=== PATIENT | male | born 1965 | race Caucasian/White ===

== ENCOUNTER 2018-12-08 09:36 | Emergency (ER) | payer OTHER, SELFPAY ==
[2018-12-08 09:40] VITALS: BP 154/101; PULSE 71; RESP 18; TEMP 36.9; O2SAT 100
--- NOTE | 2018-12-08 09:43 | DI.RAD.S_ITS ---
PROCEDURE: XR FINGER LT MIN 2V INDICATIONS: saw vs left index tip TECHNIQUE: AP hand, 2 views of the left 2nd finger(s) acquired. COMPARISON: None. FINDINGS: Bones: Moderately displaced comminuted distal tuft fracture is present. Small radiodensities within the adjacent soft tissues. Soft tissues: No suspicious soft tissue calcifications. Laceration of the distal aspect of the 2nd digit. IMPRESSION: 1. Distal tuft fracture involving the 2nd digit as described above. 2. Small radiodensities within the adjacent soft tissues, indicating fracture fragments versus foreign bodies. Dictated by: Willis Thompson M.D. on 12/08/2018 at 10:13 Approved by: Willis Thompson M.D. on 12/08/2018 at 10:17
[2018-12-08] MEDS: TET,DIPH,PERTUSS(ACELL),VAC/PF 0.5 ML SYRINGE IM (10:04)
--- NOTE | 2018-12-08 11:19 | ED_ITS ---
HPI - Skin/Abscess/Foreign Bdy General Chief complaint: Skin/Abscess/Foreign Body Stated complaint: cut tip of left hand pointer finger Time Seen by Provider: 12/08/18 10:18 Source: patient Mode of arrival: ambulatory Limitations: no limitations History of Present Illness HPI narrative: Patient comes emergency department complaining of partial left index finger tip amputation after catching his glove in a band saw about 3 hours ago. Patient denies being hurt in any other way. He states his finger tip is throbbing, and that he has sensation at the tip. Patient states he has full range of motion of the finger. No prior injury to the finger. Patient's last tetanus shot was within 10 years. No other complaints at this time. Related Data Home Medications Medication Instructions Recorded Confirmed sw-gd-[id number]-vit E-tnqpe-oem-coQ10 1 tab PO DAILY 12/08/18 12/08/18 [Daily Multivitamin] Previous Rx's Medication Instructions Recorded amoxicillin-pot clavulanate 1 tab PO BID #14 tab 12/08/18 [Augmentin] hydrocodone-acetaminophen 1 - 2 tab PO Q4H PRN #20 tab 12/08/18 Allergies Allergy/AdvReac Type Severity Reaction Status Date / Time No Known Drug Allergies Allergy Verified 12/08/18 09:42 Review of Systems Constitutional Denies chills, Denies fever(s), Denies lethargy and Denies weakness Eyes Denies change in vision, Denies eye discharge, Denies irritation and Denies loss of vision ENT Ears, Nose, Mouth, and Throat: Denies change in voice, Denies neck pain and Denies sore throat Cardiovascular Denies chest pain, Denies irregular heart rhythm, Denies lightheadedness, Denies palpitations, Denies dyspnea, Denies dyspnea on exertion and Denies orthopnea Respiratory Denies cough, Denies dyspnea, Denies dyspnea on exertion and Denies wheezing Gastrointestinal Gastrointestinal: Denies abdominal pain, Denies change in bowel habits, Denies diarrhea, Denies nausea and Denies vomiting Genitourinary Denies hematuria, Denies flank pain, Denies urinary incontinence and Denies urinary urgency Musculoskeletal Denies neck pain Integumentary/Breasts Denies pruritus, Denies erythema, Denies rash and Denies wounds Comments: finger tip avulsion and nail bed laceration Neurologic Denies confusion, Denies loss of vision and Denies weakness Psychiatric Denies anxiety, Denies confusion, Denies depression, Denies homicidal ideation and Denies suicidal ideation Endocrine Denies palpitations Hematologic/Lymphatic Denies easy bruising Allergic/Immunologic Denies wheezing [facility] Medical History Healthy adult (Acute) Surgical History No pertinent past surgical history (Acute) Social History Smoking Status: Never smoker Social History Smoking Status: Never smoker Exam Initial Vital Signs Initial Vital Signs: Vital Signs Temperature 98.4 F 12/08/18 09:40 Pulse Rate 71 12/08/18 09:40 Respiratory Rate 18 12/08/18 09:40 Blood Pressure 154/101 H 12/08/18 09:40 Pulse Oximetry 100 12/08/18 09:40 Const General: cooperative and well developed Nutritional Appearance: well nourished Orientation: alert, awake, oriented x3 and not confused HENMT Head: normocephalic and atraumatic Ears: external ears normal Nose: external nose normal and No nasal discharge Face and sinus: face symmetric and No dry mucous membranes Mouth: oral mucosae normal and moist mucous membranes Teeth and gingiva: dentition normal Eyes General: appearance normal, both eyes and all related structures Eyelids: eyelids normal Conjunctivae: conjunctivae normal Sclera: sclerae normal Pupils: PERRL EOM: EOM intact bilaterally Neck Neck: normal visual inspection, trachea midline, No lymphadenopathy, No midline deformity and No JVD Lymphatic: No lymphedema Resp Effort & Inspection: normal respiratory effort, able to speak in complete sentences, no respiratory distress and no use of accessory muscles Cardio Rate: regular rate Rhythm: regular rhythm Pulses: radial pulses present and normal peripheral pulses Skin General: no rashes or lesions noted, No jaundice and No petechiae Other: patient has a jagged laceration through his distal left finger, extending through the germinal matrix and obliquely and distally toward the palmar side. There is an approximately 1 cm portion of skin and tissue which is still attached on the palmar side of the patient's finger tip. Nail is completely avulse to from the germinal matrix, but is attached to the avulse tissue. Avulse tissue is pink. Laceration extends in a semicircular fashion from the ulnar aspect of the finger to the radial. Moderate oozing of blood is noted, without pulsatile bleeding. Neuro Other: Intact sensation of left index fingertip. Extrem Left upper extremity: hand Details: normal ROM of fingers (Intact extension to resistance at both the DIP and PIP joints of left index finger.) Procedures Laceration Repair Laceration 1: Site: hand ( left index finger) Side (If applicable): left Size (cm): 3 Description: irregular ( jagged avulsion, through nail bed in germinal matrix) Depth: simple, single layer Local Anesthetic: lidocaine 1% and other anesthetic ( digital block as above) Amount of anesthesia used (mL): 10 Pre-repair: wound explored and irrigated extensively Skin layer closed with: nylon ( 3 sutures; nail bed repaired with 3 absorbable sutures) Size (cm): 5-0 Number of sutures: 7 Technique: simple, interrupted Nerve Block Nerve Block 1: Time out performed: No Local Anesthetic: lidocaine 1% Amount of anesthesia used (mL): 10 Side: left Nerve Blocks: digital ( Left index finger) Procedure Successful: Yes Patient Tolerated Procedure: Well Complications: none [facility] [place] Procedure Name of Procedure: fingernail removal Side (if applicable): left Location: index finger Time out performed: No Technique/Description of procedure performed: Nail bed tissue was dissected from the nail, while gentle traction was placed on the nail. Patient tolerated procedure: Well Complications: none Course Course Narrative: x-ray was performed patient's left index finger prior to repair, , and patient was found to have fracture of the very tip the tuft. As such, the patient was given a dose of Augmentin, and given a prescription for Augmentin in addition to Vicodin at home. I have instructed him to follow up with hand specialist to be sure that this wound is healing well. The wound was dressed with Surgicel over the nail bed, and then splinted and wrapped with gauze. We have discussed home management of the wound, as well as the need for follow-up in the usual indications for return. Orders Ordered: Discontinued Medications Amoxicillin/Clavulanate Potassium (Augmentin 875-125 Mg) 1 tab PO NOW ONE Stop: 12/08/18 12:50 Last Admin: 12/08/18 12:54 Dose: 1 tab Diphtheria/Tetanus/Acell Pertussis (Adacel) 0.5 ml IM .ONCE ONE Stop: 12/08/18 09:44 Last Admin: 12/08/18 10:04 Dose: 0.5 ml Vital Signs - 8 hr 12/08/18 09:40 Temperature 98.4 F Pulse Rate 71 Respiratory Rate 18 Blood Pressure 154/101 H Pulse Oximetry 100 MDM - Skin/Abscess/Foreign Bdy Medical Records Attestation: I reviewed the patient's medical records. Imaging Data Finger x-ray: Radiologist's impression: [address] [address] XRay Report Signed Patient: Garett Siddiqi EMR#: [id number] : 1965Acct:[id number] Age/Sex: 53 / MDate of Service: 12/08/18 Loc: ED Accession Number: [id number] Procedure: XR finger LT min 2V Ordering Provider: Ivanna Stapleton MD PROCEDURE: XR FINGER LT MIN 2V INDICATIONS: saw vs left index tip TECHNIQUE: AP hand, 2 views of the left 2nd finger(s) acquired. COMPARISON: None. FINDINGS: Bones: Moderately displaced comminuted distal tuft fracture is present. Small radiodensities within the adjacent soft tissues. Soft tissues: No suspicious soft tissue calcifications. Laceration of the distal aspect of the 2nd digit. IMPRESSION: 1. Distal tuft fracture involving the 2nd digit as described above. 2. Small radiodensities within the adjacent soft tissues, indicating fracture fragments versus foreign bodies. Dictated by: Willis Thompson M.D. on 12/08/2018 at 10:13 Approved by: Willis Thompson M.D. on 12/08/2018 at 10:17 Discharge Plan Departure Patient Disposition: Home Clinical Impression: Nailbed injury, Open fracture of tuft of distal phalanx of finger Avulsion of fingertip Qualifiers: Encounter type: initial encounter Qualified Code(s): S61.209A - Unspecified open wound of unspecified finger without damage to nail, initial encounter Discharge Date/Time: 12/08/18 13:16 Interventions: ED Discharge Assessment Last Done: 12/08/18 13:16 Instructions: DI for Finger Fracture, DI for Laceration Repair -- Finger Activity Restrictions/Additional Instructions: Your x-ray shows that you have injured the tip of the bone of the finger tip. There are several tiny bony fragments that have broken off. These will most likely heal back to the main body of the bone in time, and will not affect function. In order to facilitate healing of both the bone and the flash, we will have you wear a splint until you see the hand specialist in follow-up. Please take the pain medication, as needed. You may also ice and elevate the finger to help with the pain. You should leave the dressing on for about the next 6 days after which you may change the outer portion. Please also take the antibiotics, as prescribed. If you begin to notice redness and swelling spreading across the back of your hand or a streak going up your arm, or if you begin to run fevers, please seek medical re-evaluation. Otherwise, please call a hand specialist to set up an appointment for 1 week from now, at which time at your nylon stitches can be removed. Prescriptions: New amoxicillin-pot clavulanate [Augmentin] 875-125 mg tablet 1 tab PO BID Qty: 14 RF: 0 hydrocodone-acetaminophen 5-325 mg tablet 1 - 2 tab PO Q4H PRN (Reason: pain) Qty: 20 RF: 0 No Action Daily Multivitamin 200-100-500 mcg Capsule 1 tab PO DAILY RF: 0 Referrals: [facility] [Provider Group] Jose Lizama MD [Non-Staff] - (Please call the hand specialty office and tell them you have a finger tip avulsion with nail bed injury and tuft fracture, and that it has been recommended that you be seen within 7 days.)
--- NOTE | 2018-12-08 11:25 | PC.NURSE ---
Laceration directly below nail bed, pulling nail up.
[2018-12-08] MEDS: AMOXICILLIN/CLAV 875/125 MG 1 TAB PO (12:54)
== END 2018-12-08 13:16 | disposition home or self-care (01) ==
PROVIDERS: Emergency Provider Emergency Medicine
DX: S62.639B Displaced fracture of distal phalanx of unspecified finger, initial encounter for open fracture (principal); Z23 Encounter for immunization
CPT/HCPCS: 12002; 64450; 73140; 90471; 99283; 90715

== ENCOUNTER 2019-06-15 14:15 | Emergency (ER) | payer OTHER, SELFPAY ==
[2019-06-15 14:21] VITALS: BP 178/123; PULSE 78; RESP 16; TEMP 36.5; O2SAT 98; BMI 36.9
--- NOTE | 2019-06-15 14:22 | ED.LOWEXIN ---
HPI - Extremity Injury (Lower) General Chief Complaint: Extremity Injury, Lower Stated Complaint: TOP OF RIGHT KNEE INJURY Time Seen by Provider: 06/15/19 14:17 Source: patient Mode of arrival: Ambulatory Limitations: no limitations History of Present Illness HPI Narrative: Patient is a 54-year-old male who presents with right knee pain after slip and fall this morning while at work. He did not land directly on his knee but he did fall on it he twisted while standing up. He says it hurts to extend his knee however he is able to ambulate and bend his knee. He denies numbness or tingling or any other injuries complaint: knee injury Onset (ago): hour(s) Related Data Home Medications Medication Instructions Recorded Confirmed hj-zr-ZS-vit T-qcweb-orh-[id number] 1 tab PO DAILY 12/08/18 06/15/19 [Daily Multivitamin] Allergies Allergy/AdvReac Type Severity Reaction Status Date / Time No Known Drug Allergies Allergy Verified 06/15/19 14:24 Review of Systems Review of Systems Narrative: GENERAL: Denies chills,fever HEENT: Denies throat pain RESPIRATORY: Denies dyspnea, cough, wheezing CARDIOVASCULAR: Denies chest pain, palpitations GASTROINTESTINAL: Denies nausea, vomiting MUSCULOSKELETAL: See HPI SKIN: No rash, no laceration, no pruritus NEUROLOGIC: Denies weakness, dizziness, headache, numbness 8 point review of systems is negative except for those stated above and HPI Patient History Medical History Healthy adult (Acute) Surgical History No pertinent past surgical history (Acute) Social History Smoking Status: Never smoker Smoking Status: Never smoker alcohol intake frequency: 0-2 drinks per day Substance Use Type: does not use Exam Initial Vital Signs Initial Vital Signs: Vital Signs Temperature 97.7 F 06/15/19 14:21 Pulse Rate 78 06/15/19 14:21 Respiratory Rate 16 06/15/19 14:21 Blood Pressure 178/123 H 06/15/19 14:21 Pulse Oximetry 98 06/15/19 14:21 GENERAL: Well-appearing, well-nourished and in no acute distress. CARDIOVASCULAR: peripheral pulses in tact, cap refill <2 sec RESPIRATORY: No respiratory distress, speaks in full sentences without difficulty EXTREMITIES: Normal range of motion, no clubbing or edema. Neurovascularly intact Right knee: No gross bony deformity knee is stable. He does have some tenderness medial thigh. He is able to stand and completely extend his knee but unable to do so while sitting. He is also able to flex his knee completely. Distal pedal pulse intact he is ambulatory in the emergency department NEUROLOGICAL: Cranial nerves II through XII grossly intact. Normal gait and speech. SKIN: Warm, dry, no petechiae, no rashes or lesions. Course Orders Ordered: ED Orders 06/15/19 14:25 XR knee RT 3V Stat Vital Signs Vital signs: Vital Signs - 8 hr 06/15/19 14:21 Temperature 97.7 F Pulse Rate 78 Respiratory Rate 16 Blood Pressure 178/123 H Pulse Oximetry 98 MDM - Extremity Injury (Lower) Imaging Data Extremity x-ray #1: Radiologist's Impression: PROCEDURE: XR KNEE RT 3V INDICATIONS: fall TECHNIQUE: 3 views of the knee were acquired. COMPARISON: None. FINDINGS: Bones: No fractures or dislocations. No suspicious bony lesions. Enthesophytes are evident the lung the distal quadriceps tendon. Soft tissues: No joint effusion. No suspicious soft tissue calcifications. IMPRESSION: No acute fracture of the right knee. Dictated by: George Cano M.D. on 06/15/2019 at 14:01 Discharge Plan Departure Patient Disposition: Home Clinical Impression: Right knee sprain Qualifiers: Encounter type: initial encounter Involved ligament of knee: unspecified ligament Qualified Code(s): S83.91XA - Sprain of unspecified site of right knee, initial encounter Discharge Date/Time: 06/15/19 15:23 Instructions: DI for Knee Sprain Activity Restrictions/Additional Instructions: *You have been diagnosed with right knee sprain *What to do: Wear knee brace as needed and use crutches as needed. This can take 3-6 weeks to heal. If her still having extreme pain you may require repeat x-ray or outpatient MRI in the next 2-3 weeks by her primary care provider *Continue to take medications as directed Tylenol 650 mg every 4-6 hours if needed for gxhm-zf-icpikqnw pain Ibuprofen 800 mg every 8 hours if needed for rxot-yy-nrenncap pain *Follow up with your primary care provider in 2-3 days *Return to ER if you should have inability to ambulate numbness tingling increasing weakness or any new, worsening or concerning symptoms Prescriptions: No Action Daily Multivitamin 200-100-500 mcg Capsule 1 tab PO DAILY RF: 0
--- NOTE | 2019-06-15 14:25 | DI.RAD.S_ITS ---
PROCEDURE: XR KNEE RT 3V INDICATIONS: fall TECHNIQUE: 3 views of the knee were acquired. COMPARISON: None. FINDINGS: Bones: No fractures or dislocations. No suspicious bony lesions. Enthesophytes are evident the lung the distal quadriceps tendon. Soft tissues: No joint effusion. No suspicious soft tissue calcifications. IMPRESSION: No acute fracture of the right knee. Dictated by: George Cano M.D. on 06/15/2019 at 14:01 Approved by: George Cano M.D. on 06/15/2019 at 14:02
== END 2019-06-15 15:23 | disposition home or self-care (01) ==
PROVIDERS: Emergency Provider Emergency Medicine
DX: S83.91XA Sprain of unspecified site of right knee, initial encounter (principal); W19.XXXA Unspecified fall, initial encounter; Y99.0 Civilian activity done for income or pay
CPT/HCPCS: 73562; 99283; 99284

== ENCOUNTER 2022-05-10 13:27 | Emergency (ER) | payer OTHER, SELFPAY ==
[2022-05-10 13:32] VITALS: BP 167/95; PULSE 80; RESP 15; TEMP 36.1; O2SAT 97; BMI 37.2
--- NOTE | 2022-05-10 13:43 | DI.RAD.S_ITS ---
PROCEDURE: XR FINGER LT MIN 2V INDICATIONS: crushed index finger TECHNIQUE: AP hand, 2 views of the 2nd finger(s) acquired. COMPARISON: [facility], CR, XR FINGER LT MIN 2V, 12/08/2018, 9:47. FINDINGS: Bones: No fractures or dislocations except at the distal phalanx of the left 2nd digit, in an area of prior injury 12/08/18 which shows a similar trauma, with a distal tuft fracture that may represent nonunion fracture from the original injury in 2019. However there is soft tissue morphology distortion in that area that at least indicates likelihood of significant new injury.. No suspicious bony lesions. Soft tissues: No suspicious soft tissue calcifications. 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 Dictated by: Rodolfo Brown M.D. on 05/10/2022 at 14:16 Approved by: Rodolfo Brown M.D. on 05/10/2022 at 14:19
[2022-05-10 14:03] VITALS: PULSE 77; O2SAT 97
[2022-05-10 14:04] VITALS: BP 168/100; PULSE 78; O2SAT 97
--- NOTE | 2022-05-10 14:14 | ED.WOUNDLAC ---
HPI - Wound/Laceration General Chief Complaint: Wound/Laceration Stated Complaint: smashed finger at work Time Seen by Provider: 05/10/22 13:58 Source: patient Mode of arrival: Ambulatory History of Present Illness HPI narrative: 57-year-old male who is up-to-date on his tetanus was here for evaluation of a left index finger injury. He states that he was at work. He got his left index finger smashed by a vice. He states he then pulled his finger out of the device. Was injury to the pad of the finger. No other injuries from the event. Was covered with a bandage in triage. Related Data Home Medications Medication Instructions Recorded Confirmed mypizlzc-uhf-JM 200 mcg-vit K 100 1 tab PO DAILY 12/08/18 06/15/19 mcg-lycop 500 ojo-jpzica-X82 capsule (Daily Multivitamin) Previous Rx's Medication Instructions Recorded cephalexin 500 mg capsule 500 mg PO QID 7 days #28 caps 05/10/22 hydrocodone 5 mg-acetaminophen 325 1 tab PO Q4-6H PRN pain #10 tabs 05/10/22 mg tablet Allergies Allergy/AdvReac Type Severity Reaction Status Date / Time No Known Drug Allergies Allergy Verified 05/10/22 13:34 Review of Systems Constitutional Constitutional: Reports system reviewed and no additional complaints, except as documented Musculoskeletal Musculoskeletal: Reports system reviewed and no additional complaints, except as documented Integumentary/Breasts Skin/Breast: Reports system reviewed and no additional complaints, except as documented Hematologic/Lymphatic On Anticoagulants: No Patient History Medical History (Updated 05/10/22 @ 16:14 by Garett Hartley DO) Healthy adult Surgical History No pertinent past surgical history Social History Smoking Status: Never smoker Smoking Status: Never smoker alcohol intake frequency: 0-2 drinks per day Substance Use Type: does not use Exam Initial Vital Signs Initial Vital Signs: Vital Signs Temperature 97.0 F L 05/10/22 13:32 Pulse Rate 80 05/10/22 13:32 Respiratory Rate 15 05/10/22 13:32 Blood Pressure 167/95 H 05/10/22 13:32 Pulse Oximetry 97 05/10/22 13:32 Oxygen Delivery Method 05/10/22 13:[address] [facility] Head: normal to inspection Cardio Pulses: radial pulses present on the left Skin Other: Patient with a skin avulsion of the left index finger located on the pad of the finger from the DI P distal. No nail involvement. Neuro Sensory Exam: no sensory deficits noted Extrem Other: Can flex and extend at the PIP and the IP joint left index finger. Course Orders Ordered: ED Orders 05/10/22 13:43 XR finger LT min 2V Stat Discontinued Medications Lidocaine HCl (Lidocaine 2% Inj Mdv 20ml) 1 ml SUBCUT NOW ONE Stop: 05/10/22 14:03 Lidocaine HCl (Lidocaine 2% Inj Sdv) 2 ml INJ NOW ONE Stop: 05/10/22 14:14 Last Admin: 05/10/22 14:14 Dose: Not Given Documented By: SB Lidocaine HCl (Lidocaine 2% Inj Sdv) 2 ml INJ NOW ONE Stop: 05/10/22 14:31 Last Admin: 05/10/22 14:56 Dose: 2 ml Documented By: SB Vital Signs Vital signs: Vital Signs - 8 hr 05/10/22 13:32 05/10/22 14:03 05/10/22 14:04 Temperature 97.0 F L Pulse Rate 80 77 78 Respiratory Rate 15 Blood Pressure 167/95 H Pulse Oximetry 97 97 97 Oxygen Delivery Method Room Air 05/10/22 14:04 Temperature Pulse Rate Respiratory Rate Blood Pressure 168/100 H Pulse Oximetry Oxygen Delivery Method MDM - Wound/Laceration Imaging Data Extremity x-ray #1: Radiologist's Impression: [address] [address] XRay Report Signed Patient: Garett Siddiqi MR#: [id number] : 1965 Acct:[id number] Age/Sex: 57 / M Date of Service: 05/10/22 Loc: ED Accession Number: [id number] ?? Procedure: XR finger LT min 2V Ordering Provider: Garett Hartley D.O. PROCEDURE:? XR FINGER LT MIN 2V ? INDICATIONS:? crushed index finger ? TECHNIQUE:? AP hand, 2 views of the 2nd finger(s) acquired.? ? COMPARISON:? [facility] , XR FINGER LT MIN 2V, 12/08/2018, 9:47. ? FINDINGS:? ? Bones:? No fractures or dislocations except at the distal phalanx of the left 2nd digit, in an area of prior injury 12/08/18 which shows a similar trauma, with a distal tuft fracture that may represent nonunion fracture from the original injury in 2019.? However there is soft tissue morphology distortion in that area that at least indicates likelihood of significant new injury..? No suspicious bony lesions.? ? Soft tissues:? No suspicious soft tissue calcifications.? ? IMPRESSION:? 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 ? ? Dictated by: Rodolfo Brown M.D. on 05/10/2022 at 14:16 ? ? Approved by: Rodolfo Brown M.D. on 05/10/2022 at 14:19 MDM Narrative Medical decision making narrative: The fracture noted on the x-rays is old. He has cut his finger in the past. He has an avulsion of the skin from the pad of the left index finger. Gelfoam and Surgicel was used with pressure and we were able to obtain hemostasis. He was covered with a Telfa and then gauze bandage. Given the nature the wound we will start him on antibiotics. Also provide pain medication. He is up-to-date on tetanus. He states he can still go to work despite this injury given the nature of his job. He was given return precautions. He expressed understanding and agreement Discharge Plan Departure Patient Disposition: Home Clinical Impression: Finger injury Instructions: Skin Wound Activity Restrictions/Additional Instructions: A prescription for pain medication and also antibiotics was sent to [facility] in [place]. Please start taking them as directed. Leave the bandage was placed in the emergency department on today for the next 48 hours. After that you can take it off. You can start to use topical antibiotic ointment and then recover with a bandage. This will take some time to heal. Return to the emergency department for any new symptoms. Prescriptions: New hydrocodone-acetaminophen 5-325 mg tablet 1 tab PO Q4-6H PRN (Reason: pain) Qty: 10 0RF cephalexin 500 mg capsule 500 mg PO QID 7 Days Qty: 28 0RF No Action Daily Multivitamin 200-100-500 mcg Capsule 1 tab PO DAILY Referrals: Miscellaneous,Doctor, MD [Primary Care Provider] -
[2022-05-10] MEDS: LIDOCAINE 2% INJ SDV 2 ML INJ (14:56)
--- NOTE | 2022-05-10 14:59 | PC.NURSE ---
Per provider 80 mg, or 4 mL, total of lidocaine 2% given. This RN contacted pharmacy as vial pulled does not scan.
[2022-05-10 16:31] VITALS: BP 163/90; PULSE 66; RESP 18; O2SAT 98
--- NOTE | 2022-05-10 16:36 | PC.NURSE ---
Wound dressed by provider.
== END 2022-05-10 16:33 | disposition home or self-care (01) ==
PROVIDERS: Emergency Provider Emergency Medicine
DX: S61.201A Unspecified open wound of left index finger without damage to nail, initial encounter (principal); W23.0XXA Caught, crushed, jammed, or pinched between moving objects, initial encounter; Y99.0 Civilian activity done for income or pay
CPT/HCPCS: 73140; 99283